=== PATIENT | male | born 1995 ===

== ENCOUNTER 2018-10-19 19:45 | Outpatient (REF) | payer BC, SELFPAY | END 2018-10-19 20:05 | LOC: NCHCN 19:45 | PROVIDERS: PCP Internal Medicine; Visit Provider Nurse Practitioner Family | DX: J02.9 Acute pharyngitis, unspecified (principal) | CPT/HCPCS: 87070 ==

== ENCOUNTER 2019-02-18 19:30 | Outpatient (REF) | payer BC, SELFPAY ==
[2019-02-22 14:54] LABS: Chlamydia Result Negative; GC Result Negative
== END 2019-02-18 19:50 ==
LOC: NCHCN 19:30
PROVIDERS: PCP Internal Medicine; Visit Provider Internal Medicine
DX: Z00.00 Encounter for general adult medical examination without abnormal findings (principal); G43.109 Migraine with aura, not intractable, without status migrainosus; F90.9 Attention-deficit hyperactivity disorder, unspecified type; Z11.3 Encounter for screening for infections with a predominantly sexual mode of transmission
CPT/HCPCS: 87491; 87591